=== PATIENT | female | born 2005 | race Two or more races ===

== ENCOUNTER 2025-01-17 16:20 | Inpatient (IN) | payer BC ==
[2025-01-17] MEDS ORDERED: Sodium Chloride 0.9% 10 ML Syringe FLUSH PRN (21:35)
[2025-01-17] MEDS ORDERED: Sodium Chloride 0.9% 2.5 ML Syringe FLUSH PRN (21:35)
[2025-01-17] MEDS ORDERED: Carboprost Tromethamine 250 MCG/1 mL Vial IM PRN (21:35)
[2025-01-17] MEDS ORDERED: Water For Irrigation,Sterile 1,000 ML Container IRR PRN (21:35)
[2025-01-17] MEDS ORDERED: Terbutaline 1 MG/ML SDV SUBCUT PRN (21:35)
[2025-01-17] MEDS ORDERED: Oxytocin/0.9 % Sodium Chloride 30 UNIT/500 ML BAG IV SCH (21:45)
[2025-01-17] MEDS: Misoprostol 25 MCG (1/4 of 100 MCG) Tab PO PRN (23:30)
[2025-01-17] MEDS: Misoprostol 25 MCG (1/4 of 100 MCG) Tab VAG PRN (23:30)
[2025-01-18 00:53] LABS: MEAN PLATELET VOLUME 11.2 fL (9.4-12.3); NRBC ABSOLUTE 0.00 K/uL (0.00-0.02); NRBC PERCENT 0.0 /100WBC (0.0-0.2); PLATELET COUNT,PLT 309 K/uL (150-400); RED BLOOD CELL COUNT 4.49 M/uL (4.10-5.30); WHITE BLOOD CELL COUNT,WBC 11.72 K/uL (3.9-11.3)
[2025-01-18] MEDS: Lactated Ringers 1,000 ML IV SCH (06:27)
[2025-01-18] MEDS: Butorphanol 1 MG/ML SDV IVPUSH PRN (07:14)
[2025-01-18] MEDS: Oxytocin/0.9 % Sodium Chloride 30 UNIT/500 ML BAG IV SCH (21:30)
[2025-01-19] MEDS: Ropivacaine HCl/PF 400 MG in Premix Bag 1 BAG EPIDUR SCH (02:00)
[2025-01-19] MEDS ORDERED: ePHEDrine 50 MG/ML SDV IVPUSH PRN (02:09)
[2025-01-19] MEDS ORDERED: dexmedeTOMIDine HCl 200 MCG/2 ML SDV EPIDUR SCH (02:15)
[2025-01-19] MEDS: Ondansetron 4 MG/2 ML SDV IVPUSH PRN (11:20)
[2025-01-19] MEDS: Oxytocin/0.9 % Sodium Chloride 30 UNIT/500 ML BAG IV SCH (15:57)
[2025-01-19] MEDS: dexmedeTOMIDine HCl 200 MCG/2 ML SDV ONE (16:55)
[2025-01-19] MEDS: Ropivacaine HCl/PF 200 ML ONE (16:56)
[2025-01-19] MEDS ORDERED: Aluminum Hydroxide/Magnesium Hydroxide/Simethicone Susp 30 ML Cup PO PRN (17:38)
[2025-01-19] MEDS ORDERED: Lanolin 100% Cream 7 GM Tube TOP PRN (17:38)
[2025-01-19 17:54] LABS: PH,UMBILICAL ARTERIAL 7.27 (7.18-7.38); PH,UMBILICAL VENOUS 7.31 (7.25-7.45)
[2025-01-19] MEDS: Witch Hazel Medicated Pads 40/Jar TOP PRN (20:00)
[2025-01-19] MEDS: Benzocaine/Menthol 20%-0.5% Spray 78 GM Cannister TOP PRN (20:05)
[2025-01-20 05:47] LABS: BASOPHILS ABSOLUTE AUTO 0.03 K/uL (0.00-0.20); BASOPHILS PERCENT AUTO 0.2 % (0.0-1.0); EOSINOPHILS ABSOLUTE AUTO 0.12 K/uL (0.00-0.45); EOSINOPHILS PERCENT AUTO 0.7 % (0.0-6.0); IMMATURE GRAN ABSOLUTE AUTO 0.08 K/uL (0.00-0.05); IMMATURE GRAN PERCENT AUTO 0.5 % (0.0-0.4); LYMPHOCYTES ABSOLUTE AUTO 2.58 K/uL (1.00-4.80); LYMPHOCYTES PERCENT AUTO 14.8 % (24.0-44.0); MEAN PLATELET VOLUME 10.9 fL (9.4-12.3); MONOCYTES ABSOLUTE AUTO 1.29 K/uL (0.00-0.80); MONOCYTES PERCENT AUTO 7.4 % (0.0-8.0); NEUTROPHILS ABSOLUTE AUTO 13.36 K/uL (1.80-7.70); NEUTROPHILS PERCENT AUTO 76.4 % (41.0-71.0); NRBC ABSOLUTE 0.00 K/uL (0.00-0.02); NRBC PERCENT 0.0 /100WBC (0.0-0.2); PLATELET COUNT,PLT 241 K/uL (150-400); RED BLOOD CELL COUNT 3.50 M/uL (4.10-5.30); WHITE BLOOD CELL COUNT,WBC 17.46 K/uL (3.9-11.3)
[2025-01-20] MEDS: Sodium Ferric Gluconate Cmplex 125 MG in Sodium Chloride 0.9% 100 ML IV SCH (10:12)
== END 2025-01-22 14:09 | disposition home or self-care (01) | DRG 560 ==
LOC: MW.OBCHECK 16:20 → MW.OB 16:20 → MW.OBCHECK 01-18 02:57 → MW.OB 01-18 02:58 → OBSVTOIN 01-19 17:39 → MW.OB 01-19 21:29
PROVIDERS: ADMIT Obstetrics & Gynecology; ATTEND Obstetrics & Gynecology Obstetrics
PROC: 10E0XZZ Delivery of Products of Conception, External Approach (ICD-10-PCS; principal; 2025-01-19)
PROC: 3E0R3BZ Introduction of Anesthetic Agent into Spinal Canal, Percutaneous Approach (ICD-10-PCS; 2025-01-19)
PROC: 3E033VJ Introduction of Other Hormone into Peripheral Vein, Percutaneous Approach (ICD-10-PCS; 2025-01-19)
PROC: 3E0DXGC Introduction of Other Therapeutic Substance into Mouth and Pharynx, External Approach (ICD-10-PCS; 2025-01-19)
PROC: 0HQ9XZZ Repair Perineum Skin, External Approach (ICD-10-PCS; 2025-01-19)
DX: O99.214 Obesity complicating childbirth (principal); Z3A.36 36 weeks gestation of pregnancy; Z37.0 Single live birth; O99.02 Anemia complicating childbirth; Z79.899 Other long term (current) drug therapy; O70.0 First degree perineal laceration during delivery; O36.5930 Maternal care for other known or suspected poor fetal growth, third trimester, not applicable or unspecified
CPT/HCPCS: 01967; 36415; 51702; 59025; 59409; 76819; 76819-26; 82803; 85025; 85027; 86592; 86850; 86900; 86901; A9270-GY; J0595; J0665; J2371; J2405; J2590; J2795; J2916; J7030; J7120